=== PATIENT | male | born 1985 | race American Indian/Alaskan Native ===

== ENCOUNTER 2021-01-28 11:08 | Outpatient (CLI) | payer OTHER ==
--- NOTE | 2021-01-28 14:48 | Ultrasound Report ---
US extremity nonvascular RT INDICATION / CLINICAL INFORMATION: PERSISTANT PAIN. COMPARISON: None available. FINDINGS: Limited grayscale and color Doppler imaging within the right groin area of concern. 3 small lymph nodes are identified with the largest measuring 4 mm. Normal reniform morphology and fa tty paula are identified. No evidence of mass, fluid collection, or other significant abnormality. IMPRESSION: 1. No sonographic abnormality. 2. Small, benign-appearing lymph nodes. Signer Name: Irwin Perez MD Signed: 01/28/2021 2:44 PM Workstation Name: [id number]
== END 2021-01-28 11:09 | disposition home or self-care (01) ==
LOC: US 11:08
PROVIDERS: ATTEND Internal Medicine
DX: R10.31 Right lower quadrant pain (principal); R59.0 Localized enlarged lymph nodes